=== PATIENT | male | born 1950 | race Caucasian/White ===

== ENCOUNTER → 2024-02-03 09:10 | Outpatient (REF) | payer MEDICARE, SELFPAY ==
[2024-02-03 10:30] LABS: Hematocrit 45.1 % (39.0-52.0); Hemoglobin 15.1 g/dL (13.0-18.0); Mean Corp Hgb Conc. 33.5 g/dL (33.0-37.0); Mean Corpuscular Hgb 29.5 pg (27.0-31.0); Mean Corpuscular Volume 88.3 fL (80.0-94.0); Mean Platelet Volume 9.6 fL (7.4-10.4); Platelet Count 250 10^3/uL (130-400); Red Blood Cell Count 5.11 10^6/uL (4.70-6.10); Red Cell Dist. Width 13.7 % (11.5-14.5); White Blood Cell Count 12.1 10^3/uL (4.8-10.8)
[2024-02-03 10:43] LABS: Glycohemoglobin (HgbA1c) 7.2 % (4.0-5.6)
[2024-02-03 10:46] LABS: % Basophils 0.4 % (0-2); % Immature Granulocytes 0.2 % (0-0.5); % Lymphocytes 51.4 % (20.5-51.1); % Monocytes 5.1 % (1.7-9.3); % Neutrophils 40.9 % (42.2-75.2); Absolute Basophils 0.1 10^3/uL (0-0.2); Absolute Eosinophils 0.2 10^3/uL (0-0.7); Absolute Lymphocytes 6.2 10^3/uL (1.2-3.4); Absolute Monocytes 0.6 10^3/uL (0.1-0.6); Absolute Neutrophils 4.9 10^3/uL (1.4-6.5); Nucleated Red Blood Cells % 0 % (-)
[2024-02-03 11:08] LABS: Microalbumin, Random Urine 1.6 mg/dl (0.6-1.7); Microalbumin/creatinine Ratio 5.5 mg/g
[2024-02-03 11:17] LABS: ALT (SGPT) 29 U/L (0-50); AST (SGOT) 24 U/L (17-59); Albumin 4.7 g/dl (3.5-5.0); Alkaline Phosphatase 58 U/L (38-126); Blood Urea Nitrogen 31 mg/dl (9-20); Carbon Dioxide 27 mmol/L (22-30); Chloride 101 mmol/L (98-107); Glucose 131 mg/dl (70-99); HDL Cholesterol 45 mg/dl; LDL Cholesterol, Calculated 40 mg/dl; Potassium 4.5 mmol/L (3.5-5.1); Sodium 144 mmol/L (135-145); Total Bilirubin 0.7 mg/dl (0.2-1.3); Total Cholesterol 134 mg/dl (50-199); Total Protein 7.4 g/dl (6.3-8.2); Triglyceride 248 mg/dl (10-149); Very Low Density Lipoprotein 49 mg/dl (0-30); eGFR 37.25
[2024-02-03 11:47] LABS: Urine Protein < 5 mg/dl
== END ==
LOC: REG 09:10
PROVIDERS: ATTENDING PHYSICIAN Physician Assistant; FAMILY PHYSICIAN Family Medicine
DX: E11.65 Type 2 diabetes mellitus with hyperglycemia (principal)
CPT/HCPCS: 36415; 80053; 80061; 82043; 82570; 83036; 84156; 85025

== ENCOUNTER → 2024-02-25 19:05 | Outpatient (REF) | payer MEDICARE, SELFPAY ==
[2024-02-26 08:39] LABS: Body Fluid Mononuclear 4.2 %; Body Fluid Polymorphonuclear 95.8 %; Body Fluid WBC 81400 /CUMM
[2024-02-26 08:48] LABS: Body Fluid Second Tech AMA
== END ==
LOC: CLAB 19:05
PROVIDERS: ATTENDING PHYSICIAN Orthopaedic Surgery
DX: M25.462 Effusion, left knee (principal); M17.12 Unilateral primary osteoarthritis, left knee
CPT/HCPCS: 87070; 87075; 87205; 89051; 89060

== ENCOUNTER → 2024-03-01 12:09 | Outpatient (REF) | payer MEDICARE, SELFPAY ==
[2024-03-01 13:24] LABS: Hematocrit 47.3 % (39.0-52.0); Hemoglobin 15.8 g/dL (13.0-18.0); Mean Corp Hgb Conc. 33.4 g/dL (33.0-37.0); Mean Corpuscular Hgb 28.9 pg (27.0-31.0); Mean Corpuscular Volume 86.6 fL (80.0-94.0); Mean Platelet Volume 8.7 fL (7.4-10.4); Platelet Count 451 10^3/uL (130-400); Red Blood Cell Count 5.46 10^6/uL (4.70-6.10); Red Cell Dist. Width 13.2 % (11.5-14.5); White Blood Cell Count 18.8 10^3/uL (4.8-10.8)
[2024-03-01 13:55] LABS: % Basophils 0.3 % (0-2); % Eosinophils 0.3 % (0-6); % Immature Granulocytes 0.3 % (0-0.5); % Lymphocytes 48.7 % (20.5-51.1); % Monocytes 3.2 % (1.7-9.3); % Neutrophils 47.2 % (42.2-75.2); Absolute Basophils 0.1 10^3/uL (0-0.2); Absolute Eosinophils 0.1 10^3/uL (0-0.7); Absolute Immature Granulocytes 0.1 10^3/uL (0-0.05); Absolute Lymphocytes 9.2 10^3/uL (1.2-3.4); Absolute Monocytes 0.6 10^3/uL (0.1-0.6); Absolute Neutrophils 8.9 10^3/uL (1.4-6.5); Nucleated Red Blood Cells % 0 % (-)
[2024-03-01 14:00] LABS: Erythrocyte Sed Rate 47 mm/hour (0-20)
== END ==
LOC: REG 12:09
PROVIDERS: ATTENDING PHYSICIAN Physician Assistant; FAMILY PHYSICIAN Family Medicine
DX: M25.462 Effusion, left knee (principal)
CPT/HCPCS: 36415; 85025; 85652; 86140; 87040

== ENCOUNTER 2024-03-11 19:09 | Inpatient (IN) | payer MEDICARE, SELFPAY ==
[2024-03-11] VITALS (8 sets, daily range): BP systolic 98–142; BP diastolic 64–93; PULSE 100–105; BMI 32.4; BMI 31.9
--- NOTE | 2024-03-11 16:56 | EDRN ---
2 bags of ice applied to L knee.
[2024-03-11 17:06] LABS: Hematocrit 40.2 % (39.0-52.0); Hemoglobin 13.4 g/dL (13.0-18.0); Mean Corp Hgb Conc. 33.3 g/dL (33.0-37.0); Mean Corpuscular Hgb 28.9 pg (27.0-31.0); Mean Corpuscular Volume 86.8 fL (80.0-94.0); Mean Platelet Volume 9.5 fL (7.4-10.4); Platelet Count 266 10^3/uL (130-400); Red Blood Cell Count 4.63 10^6/uL (4.70-6.10); Red Cell Dist. Width 13.7 % (11.5-14.5); White Blood Cell Count 16.8 10^3/uL (4.8-10.8)
--- NOTE | 2024-03-11 17:09 | ED.GENMED ---
History of Present Illness
General
Chief Complaint: Fainting/Passed Out
Source: patient, family and ambulance crew
Exam Limitations: none
Time Seen by Provider: 03/11/24 17:00
Nursing documentation reviewed up to this point in time: agreed with
History of Present Illness
History of Present Illness:
73-year-old male presents for department due to a syncope episode. He is bedbound due to left knee pain and needs a left knee replacement. He got out of bed to use the commode, and felt lightheaded. He had a bowel movement, and upon returning to
bed he fainted onto the bed. EMS noted systolic blood pressure 88, improving to 135 when he was lying flat. Patient was given 250 mL IV fluid. He has been on steroids and has started injection and his knee drained.
Past History
Past History
ED Past Medical History: NIDDM
ED Past Surgical History: Orthopedic (Right foot surgery, left knee surgery x 3) and Other (Nasal surgery)
Social History
Tobacco: Former smoker
Alcohol: None
Drug: None
Review of Systems
Review of Systems
Allergies reviewed?: Yes
All Other Systems: Not applicable
Constitutional: Reports no symptoms
EENT: Reports no symptoms
Respiratory: Reports no symptoms
Cardiac: Reports syncope
ABD/GI: Reports no symptoms
: Reports no symptoms
Musculoskeletal: Reports joint pain and joint swelling
Skin: Reports no symptoms
Neurological: Reports no symptoms
Endocrine: Reports no symptoms
Hematologic/Lymphatic: Reports no symptoms
Psychiatric: Reports no symptoms
Phy Exam
Physical Exam
Physical Exam:
Physical Exam
General: BP 98/63 l
Neck: supple. no meningeal signs. normal posterior pharynx
Heart: s1/s2 tachycardia, no murmur. equal radial
pulses.
HEENT: Pupils equal round reactive to light, EOMI
Lungs: no acute respiratory distress. clear bilaterally
Abdomen: normal bowel sounds. not tender. no CVAT
Neuro: alert and oriented. no focal neurological deficits cranial nerves II through XII intact
Skin: no rash
Psychiatric: well kept. interactive and cooperative
Extremities: Left knee swollen, tender to palpation. no calf tenderness. negative homans. good distal pulses
Course
Orders/Labs/Results
Orders:
Orders
03/11/24 16:44
Electrocardiogram (*1) Urgent
Reason for Study: Chest Pain
Cardiac Monitoring- Treatment ONCE
EKG- Treatment ONCE
03/11/24 16:50
Complete Blood Count/With Diff Urgent
Comprehensive Metabolic Panel Urgent
Abnormal Lab Results
03/11/24
16:50
WBC 16.8 H 10^3/uL
(4.8-10.8)
RBC 4.63 L 10^6/uL
(4.70-6.10)
Chloride 97 L mmol/L
(98-107)
BUN 67 H mg/dl
(9-20)
Creatinine 3.6 H mg/dL
(0.7-1.3)
Glucose 161 H mg/dl
(70-99)
03/11/24 16:50
03/11/24 16:50
Vital Signs
Initial and Last Documented VS:
Initial Vital Signs
BP
142/93
03/11/24 16:32
Last Documented Vital Signs
Temp Pulse Resp BP Pulse Ox
98.1 F 106 23 110/66 97
03/11/24 16:34 03/11/24 17:00 03/11/24 17:00 03/11/24 16:37 03/11/24 17:00
MDM/Problems Addressed
Differential Diagnosis Includes:
Hypovolemia, dysrhythmia
MDM/Problems Addressed:
73-year-old male with syncope episode, acute renal failure, likely hypovolemia. Will give IV lactated Ringer's. Admit to hospitalist.
Chronic conditions affecting care: DM
*Pulse Oximetry
Patient hypoxic: no
*EKG
Interpreted by ED Provider?: Yes
EKG Intrepretation Date: 03/11/24
EKG Intrepretation Time: 16:53
Interpretation: abnormal
Comparison EKG: changes noted
Heart Rate: 109
Rate: tachycardiac
Rhythm: sinus tachycardia
[place]: normal axis
Interval: normal interval
QRS Pattern: normal QRS
Ischemia: non-specific ST changes
*Back Up Machine Operator Interpretation
Rate: tachycardiac
Interpretation: abnormal
Heart Rate: 105
Rhythm: sinus tachycardia
*Critical Care Note
Total Time (30-74mins, 75-104mins- exclusive of procedures): Not Applicable
Data Reviewed
Review of Other/Old Records Reveals: Labs (Prior creatinine 1.9 on 02/03/2024)
Source: records
Patient Management
Social determinants of health affecting care: Living situation and Strong social support
Discussion with other providers: Hospitalist
Escalation/DeEscalation of care consider admission/obs:
Admit indicated
ED Attending Note
-
Portions of this chart may have been created with voice recognition software.� Occasional wrong word or��sound alike� substitutions may have occurred due to the inherent limitations of voice recognition software.
Discharge Plan
Departure
Patient Disposition: Admit
Date of Disposition: 03/11/24
Time of Disposition: 17:30
Admit to: Telemetry
Presentation/result/management discussed w/ accepting MD/DO: Hospitalist
Patient with high blood pressure during this ER visit?: No
Condition: Fair
Discharge Problem:
Syncope, Acute renal failure, Acute pain of left knee
Prescriptions:
No Action
atorvastatin 40 mg Tablet
40 mg PO DAILY
chlorthalidone 25 mg Tablet
25 mg PO Q48H
metformin 1,000 mg Tablet
1,000 mg PO BID
lisinopril 10 mg Tablet
5 mg PO DAILY
finasteride 5 mg Tablet
5 mg PO HS
Referrals:
Adolfo Alberto MD [Family Provider] -
Interventions
Interventions:
*Risk Screen - Suicide Last Done: 03/11/24 16:34
*General Assessment Last Done: 03/11/24 16:34
*Neglect/Abuse Screening Last Done: 03/11/24 16:34
ED- Fall Risk Assessment Last Done: 03/11/24 16:58
*ED COVID-19 Vaccine History Last Done: 03/11/24 16:34
ED- Cardiac Assessment Last Done: 03/11/24 16:58
ED- Neurological Assessment Last Done: 03/11/24 16:58
Discharge Date and Time
Print Language: BENINESE
[2024-03-11 17:19] LABS: ALT (SGPT) 22 U/L (0-50); AST (SGOT) 18 U/L (17-59); Alkaline Phosphatase 74 U/L (38-126); Blood Urea Nitrogen 67 mg/dl (9-20); Calcium 9.7 mg/dl (8.4-10.2); Carbon Dioxide 22 mmol/L (22-30); Chloride 97 mmol/L (98-107); Estimated Creatinine Clearance 25 ml/min; Glucose 161 mg/dl (70-99); Potassium 4.5 mmol/L (3.5-5.1); Sodium 136 mmol/L (135-145); Total Bilirubin 0.6 mg/dl (0.2-1.3); Total Protein 6.9 g/dl (6.3-8.2)
--- NOTE | 2024-03-11 17:37 | EDRN ---
Dr. Villalpando in to see pt and informed pt of admission.
[2024-03-11] MEDS: ZOFRAN 4 MG IV (17:44)
[2024-03-11] MEDS: LR 1000 IV (17:47)
--- NOTE | 2024-03-11 17:51 | EDRN ---
Per Dr. Villalpando pt received last 250 mL of NSS IVF that finished at this time for a total of 500 mL of IV NSS.
--- NOTE | 2024-03-11 17:52 | EDRN ---
Pt requesting pain meds and informed due to BP ED MD felt no narcotics w/ pt informed and requested tylenol w/ last dose at 6:00 am w/ Dr. Kwasi Brady.
--- NOTE | 2024-03-11 18:00 | HPS.HSE ---
Family Physician
-
Family Physician: Adolfo Alberto
Chief Complaint
-
lightheaded
syncope
History of Present Illness
73-year-old male with PMH for HLD, HTn, BPH,type 2 Dm presents for department due to a syncope episode. patient felt lightheaded while he was in the commode. He got into his bed and passed out for 2 minutes. he is bedbound due to left knee pain
and needs a left knee replacement. Patient stated poor oral intake. Stated nausea and dry heaves. Denied diarrhea or vomiting patient denied any abdominal pain. Patient denied any headache. Patient denied chest pain or short of breath. Denied
dysuria hematuria.
Patient noticed worsening swelling of his left since January. Patient was on steroids until 20 days ago. Received corticosteroid injection 2 weeks ago. His knee was tapped 4 times. His fluid culture grew Streptococcus species. Patient did not
require any antibiotics.
Patient received a dose of Tylenol in the ER. Patient initiated on lactated Ringer's. Zofran as needed for nausea
Medical History
Past Medical History
Past Medical History: Reports Other
Additional Past Medical History:
Hyperlipidemia
BPH
Type 2 diabetes
Stage III chronic disease
Past Surgical History: Reports Other
Additional Past Surgical History:
Cyst removed from back
Right ankle surgery
Left knee meniscus repair
ACL removal of left knee
Eye surgery
Social History
Tobacco: Former Smoker
Alcohol: None
Drug: None
Living: With Family
Family History
Family History: Not pertinent
Allergies / Home Medications
Allergies reflects when Allergies were last updated in [facility].
Home Medications with original date entered in [facility]
Allergy/Medication List:
Allergies
Allergy/AdvReac Type Severity Reaction Status Date / Time
No Known Allergies Allergy Unverified 03/11/24 16:34
Home Medications
acetaminophen 325 mg tablet (Tylenol) 650 mg PO Q4HPRN PRN mild pain 03/11/24
atorvastatin 40 mg tablet 40 mg PO DAILY 03/11/24
chlorthalidone 25 mg tablet 25 mg PO Q48H 03/11/24
finasteride 5 mg tablet 5 mg PO HS 03/11/24
lisinopril 10 mg tablet 5 mg PO DAILY 03/11/24
metformin 1,000 mg tablet 1,000 mg PO BID 03/11/24
Review of Systems
-
Constitutional: Reports No Symptoms
EENT: Reports No Symptoms
Respiratory: Reports No Symptoms
Cardiac: Reports No Symptoms
Abdomen/GI: Reports No Symptoms
: Reports No Symptoms
Musculoskeletal: Reports Edema (Left knee)
Skin: Reports No Symptoms
Neurological: Reports No Symptoms, Dizzy and Other (Syncope)
Endocrine: Reports No Symptoms
Hematologic/Lymphatic: Reports No Symptoms
Psych: Reports No Symptoms
Physical Exam
Vital Signs
Vital Signs
Temp Pulse Resp BP Pulse Ox
98.1 F 106 23 110/66 97
03/11/24 16:34 03/11/24 17:00 03/11/24 17:00 03/11/24 16:37 03/11/24 17:00
Physical Exam
General: Well Developed, Well Nourished and No Apparent Distress
HEENT: NormoCephalic, Moist mucous membranes and Atraumatic
Respiratory: Clear
Cardiac: S1/S2 and Regular Rhythm; No Murmur or Rub
GI: Soft, Non Tender, Non Distended and Normal Bowel Sounds; No Organomegaly
Rectal: Deferred by Provider
Musculoskeletal: No Clubbing, No Cyanosis and Other (left knee edema)
Skin: No Rash
Neuro: AO x 3 and Nonfocal/grossly intact
Psych: Calm
Laboratory Results
-
03/11/24 16:50
03/11/24 16:50
Laboratory Results
Total Bilirubin 0.6 mg/dl (0.2-1.3) 03/11/24 16:50
AST 18 U/L (17-59) 03/11/24 16:50
ALT 22 U/L (0-50) 03/11/24 16:50
Alkaline Phosphatase 74 U/L (38-126) 03/11/24 16:50
Data Reviewed
-
Lab Data: Labs Reviewed by me
Impression/Plan
-
# Syncope likely dehydration
-obtain orthostatics
-PT/OT consulted
# Acute renal failure on CKD stage IIIb likely dehydration
-Creatinine 3.6
-hold lisinopril, chlorthalidone, metformin
-normal saline continued
-BMp in am
# Leukocytosis likely from steroids
-WBC 16.8
-Patient is afebrile
-Obtain UA
# Hyperlipidemia
-Statin continued
# BPH
-Finasteride continued
# Type 2 diabetes
-Sliding scale
-Carb controlled diet
left knee pain
-lidocaine, Tylenol continued
# DVT prophylaxis
-Heparin subcu
# CODE STATUS
-Full code
[2024-03-11] MEDS: TYLENOL 650 MG PO ×2 (18:18→21:11)
--- NOTE | 2024-03-11 18:20 | EDRN ---
Dr. Stoddard in room w/pt at this time.
--- NOTE | 2024-03-11 18:35 | W.PN.UPDATE ---
Update Note
Progress Note Update
This is an addendum to the H&P written by Dena Bone on 03/11/2024. 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
73-year-old male past medical history of hypertension, hyperlipidemia, BPH, type 2 diabetes, severe left knee arthritis presenting with dizziness over the past few days associate with syncopal episode after using the bathroom today.
He has not been able to walk properly due to severe left knee pain for which she received Synvisc injection few weeks ago and steroid injection. He has also been on oral steroids recently.
Syncopal episode likely due to hypovolemia. Labs shows TAMARA on CKD with creatinine of 3.6 from 1.9. IV fluids. Hold chlorthalidone, lisinopril, metformin.
Tylenol, lidocaine patch, ice for left knee pain. Patient refusing tramadol and opiates due to insomnia.
Leukocytosis likely from recent steroids.
He is complaining of some stomach discomfort possibly gastritis from recent naproxen use. Protonix.
[2024-03-11 18:45] LABS: % Basophils 0.3 % (0-2); % Eosinophils 0.8 % (0-6); % Immature Granulocytes 0.4 % (0-0.5); % Lymphocytes 42.9 % (20.5-51.1); % Monocytes 4.9 % (1.7-9.3); % Neutrophils 50.7 % (42.2-75.2); Absolute Basophils 0.1 10^3/uL (0-0.2); Absolute Eosinophils 0.1 10^3/uL (0-0.7); Absolute Immature Granulocytes 0.1 10^3/uL (0-0.05); Absolute Lymphocytes 7.2 10^3/uL (1.2-3.4); Absolute Monocytes 0.8 10^3/uL (0.1-0.6); Absolute Neutrophils 8.5 10^3/uL (1.4-6.5); Nucleated Red Blood Cells % 0 % (-)
[2024-03-11] MEDS: LIDOCAINE 4% PATCH TOPICAL (21:07)
[2024-03-11] MEDS: NSS 1000 IV (21:09)
[2024-03-11] MEDS: PROTONIX 40 MG PO (21:10)
[2024-03-11] MEDS: PROSCAR 5 MG PO (21:11)
[2024-03-11] MEDS: HEPARIN 5000 UNITS SC (21:11)
[2024-03-11 21:17] LABS: Glucose - Point of Care 160 mg/dl (70-99)
--- NOTE | 2024-03-11 23:57 | PTCARENOTE ---
Pt is aaox3, reports pain in left leg. pt unable to walk. pt reports that he tried tramadol in past but had horrible side effect. pt provided w/ sandwhich to eat. ivf running. pt oriented to room w/ call jay in reach.
[2024-03-12] VITALS (8 sets, daily range): BP systolic 99–133; BP diastolic 70–84; PULSE 91–120
[2024-03-12] MEDS: TYLENOL 650 MG PO ×4 (01:36→20:00)
[2024-03-12] MEDS: ZOFRAN 4 MG IV (05:21)
[2024-03-12 06:03] LABS: Urine Albumin Trace (Neg - Trace); Urine Bilirubin Negative (Negative); Urine Character Clear (Clear); Urine Color Yellow; Urine Glucose Negative (Negative); Urine Ketone Negative (Negative); Urine Leukocyte Negative (Negative); Urine Nitrite Negative (Negative); Urine Occult Blood Negative (Negative); Urine Specific Gravity 1.015 (<1.030); Urine Urobilinogen Negative (Neg - 1+)
[2024-03-12] MEDS: NSS 1000 IV ×2 (06:37→18:54)
[2024-03-12 07:32] LABS: Glucose - Point of Care 105 mg/dl (70-99)
[2024-03-12] MEDS: NOVOLOG FLEXPEN-LOW RESISTANCE SC ×2 (07:34→16:41)
[2024-03-12] MEDS: LIDOCAINE 4% PATCH 1 PATCH TOPICAL (08:13)
[2024-03-12] MEDS: PROTONIX 40 MG PO (08:13)
[2024-03-12] MEDS: LIPITOR 40 MG PO (08:14)
[2024-03-12] MEDS: HEPARIN 5000 UNITS SC ×2 (08:14→20:00)
[2024-03-12 08:18] LABS: Hematocrit 39.2 % (39.0-52.0); Hemoglobin 12.8 g/dL (13.0-18.0); Mean Corp Hgb Conc. 32.7 g/dL (33.0-37.0); Mean Corpuscular Hgb 29.1 pg (27.0-31.0); Mean Corpuscular Volume 89.1 fL (80.0-94.0); Platelet Count 236 10^3/uL (130-400); Red Cell Dist. Width 13.6 % (11.5-14.5); White Blood Cell Count 11.5 10^3/uL (4.8-10.8)
[2024-03-12 08:41] LABS: Blood Urea Nitrogen 55 mg/dl (9-20); Calcium 9.3 mg/dl (8.4-10.2); Carbon Dioxide 27 mmol/L (22-30); Chloride 100 mmol/L (98-107); Estimated Creatinine Clearance 34 ml/min; Glucose 111 mg/dl (70-99); Potassium 4.5 mmol/L (3.5-5.1); Sodium 137 mmol/L (135-145); eGFR 25.57
[2024-03-12 10:07] LABS: Glycohemoglobin (HgbA1c) 7.9 % (4.0-5.6)
--- NOTE | 2024-03-12 10:21 | W.PN.HOSP.TC ---
Today's Communication/Plan
-
Hold blood pressure medication
Continue with aggressive IV fluids
Trend orthostatic
Trend BMP
Assessment / Plan
Assessment / Plan
# Vasovagal syncope likely second dehydration and while on blood pressure medication
-Positive orthostatics and symptomatic
-Continue with aggressive IV fluids.
-No events noted on telemetry.
-PT/OT consulted
# Acute renal failure on CKD stage IIIb likely dehydration
-Creatinine 3.6 on admission. Improved to 2.6.
-hold lisinopril, chlorthalidone, metformin
-normal saline continued
-Continue to trend BMP.
# Leukocytosis likely from steroids
-WBC 16.8
-Patient is afebrile
# Hyperlipidemia
-Statin continued
# BPH
-Finasteride continued
# Type 2 diabetes
-Sliding scale. A1c of 7.9.
-Carb controlled diet. POC AM 105.
Chronic left knee pain
-lidocaine, Tylenol continued
# DVT prophylaxis
-Heparin subcu
# CODE STATUS
-Full code
Anticipated Discharge: 24 - 48 hours
Subjective/Interval History
-
Date of Service: March 12, 2024
felt lightheaded upon standing earlier today
Objective Data
-
Labs:
Laboratory Results
03/12/24
07:19
WBC 11.5 H
Hgb 12.8 L
Hct 39.2
Plt Count 236
Sodium 137
Potassium 4.5
Chloride 100
Carbon Dioxide 27
BUN 55 H
Creatinine 2.6 H
Glucose 111 H
Calcium 9.3
Vital Signs:
Vital Signs
Temp Pulse Resp BP Pulse Ox
97.7 F 89 16 131/84 95
03/12/24 07:20 03/12/24 07:20 03/12/24 07:20 03/12/24 07:20 03/12/24 07:20
I&O
03/11/24 03/12/24 03/13/24
06:59 06:59 06:59
Intake Total 2960 / 2960
Output Total 250 / 250
Balance 2710 / 2710
Physical Exam
-
General: Well Developed and No Apparent Distress
HEENT: Normocephalic, Atraumatic and Moist Mucous Membranes
Respiratory: Clear to Auscultation
Cardiac: Regular Rhythm and S1/S2; Negative Murmur, Rub or Gallop
GI: Soft, Nontender, Nondistended and Normal Bowel Sounds; Negative Organomegaly
Rectal: Deferred by Provider
Musculoskeletal: No Clubbing, No Cyanosis and No Edema
Skin: Negative Rash
Neuro: Awake, Alert, Oriented, AO x 3, No Motor Deficits and Nonfocal/Grossly Intact
Psych: Calm
Data Reviewed
-
Total Time Spent with Patient (in minutes): 51
[2024-03-12 11:34] LABS: Glucose - Point of Care 167 mg/dl (70-99)
--- NOTE | 2024-03-12 11:47 | CM ---
Pt seen bedside. Pt lives w/ 17 y/o son in a [facility]- 4 steps to enter
Prev. independent. Recently started using RW for knee pain. No other DME identified
Denies SNF hx
Per PT/OT, pt can benefit from HH
Current w/ [facility]. Return referral submitted in [facility]. Liaison made aware
Address, point of contact and insurance verified
PCP: Dr. Adolfo Alberto
Pharmacy: [facility]
Plan: Home w/ [facility] resumption of care
[2024-03-12] MEDS: NOVOLOG FLEXPEN-LOW RESISTANCE 1 UNITS SC (12:09)
--- NOTE | 2024-03-12 16:32 | W.PN.UPDATE ---
Update Note
Progress Note Update
Patient known to our practice. Was supposed to have an outpatient visit with us today for his knee. Has a history of left knee osteoarthritis. Had a viscosupplementation injection approximately 4 weeks ago with a subsequent reaction. He has had
aspirations performed. Elevated WBC, with elevated ESR and normal CRP 1-2 weeks ago. Also had a positive culture which was thought to be a contaminant. No fevers. Complains of knee pain with swelling. Knee aspirated today. 25 cc of slightly
cloudy synovial fluid aspirated which is much less than 1-2 weeks ago. Have sent to the lab for cell count, cultures, and gram stain. He has not been on antibiotics as of yet and would keep off of antibiotics for his knee at this time. Will
follow. Full consult dictated.
[2024-03-12 16:33] LABS: Glucose - Point of Care 124 mg/dl (70-99)
[2024-03-12 21:38] LABS: Glucose - Point of Care 108 mg/dl (70-99)
[2024-03-12] MEDS: PROSCAR 5 MG PO (21:43)
[2024-03-13] MEDS: TYLENOL 650 MG PO ×5 (00:41→21:39)
[2024-03-13 03:40] VITALS: BP 136/79
[2024-03-13] MEDS: NSS 1000 IV ×2 (05:01→12:19)
[2024-03-13 07:00] VITALS: BP 141/88; BP 154/99; PULSE 83; PULSE 93
[2024-03-13 07:51] LABS: Glucose - Point of Care 106 mg/dl (70-99)
[2024-03-13] MEDS: NOVOLOG FLEXPEN-LOW RESISTANCE SC ×3 (07:56→16:50)
[2024-03-13 07:59] LABS: Hematocrit 37.2 % (39.0-52.0); Hemoglobin 11.9 g/dL (13.0-18.0); Mean Corpuscular Hgb 28.7 pg (27.0-31.0); Mean Corpuscular Volume 89.9 fL (80.0-94.0); Mean Platelet Volume 10.1 fL (7.4-10.4); Platelet Count 201 10^3/uL (130-400); Red Blood Cell Count 4.14 10^6/uL (4.70-6.10); Red Cell Dist. Width 13.7 % (11.5-14.5); White Blood Cell Count 9.3 10^3/uL (4.8-10.8)
[2024-03-13] MEDS: LIDOCAINE 4% PATCH 1 PATCH TOPICAL (08:11)
[2024-03-13] MEDS: LIPITOR 40 MG PO (08:11)
[2024-03-13] MEDS: HEPARIN 5000 UNITS SC ×2 (08:11→20:27)
[2024-03-13] MEDS: PROTONIX 40 MG PO (08:11)
[2024-03-13 08:18] LABS: Blood Urea Nitrogen 33 mg/dl (9-20); Calcium 9.1 mg/dl (8.4-10.2); Carbon Dioxide 25 mmol/L (22-30); Chloride 103 mmol/L (98-107); Estimated Creatinine Clearance 46 ml/min; Glucose 99 mg/dl (70-99); Potassium 4.3 mmol/L (3.5-5.1); Sodium 137 mmol/L (135-145); eGFR 37.25
[2024-03-13 11:00] VITALS: BP 140/84
[2024-03-13 11:06] LABS: Body Fluid Polymorphonuclear 95.4 %; Body Fluid WBC 54530 /CUMM
[2024-03-13 11:13] LABS: Body Fluid Mononuclear 4.6 %
[2024-03-13 11:16] LABS: Body Fluid Second Tech HB
[2024-03-13 11:50] LABS: Glucose - Point of Care 104 mg/dl (70-99)
--- NOTE | 2024-03-13 13:10 | W.PN.UPDATE ---
Update Note
Progress Note Update
Edward is a 73-year-old male who we have been following outpatient for a left knee effusion following a Synvisc [address] Ramirez aspirated 25 cc of cloudy fluid from the left knee yesterday. I contacted microbiology this morning, they
reported they had the sample, but no verification of the orders that were placed. I completed the orders, but culture and Gram stain are currently pending.
Fluid analysis did demonstrate a fluid WBC of 54,530, polymorphonuclear cell count of 95.4%, and no fluid crystals seen. The cell count has improved from 81,400 and 95.8% PMNs since 02/25/2024.
On exam, he is resting comfortably. He has mild swelling about the knee, but no significant effusion. Mild tenderness to palpation. Difficulty with range of motion, however, this is due to 'jolting' pain likely secondary to his underlying
advanced arthritis. His white blood cell count has normalized and there is low suspicion for septic joint at this time. We will continue to follow the cultures, however, if he has stabilized from a medical standpoint, we can continue to follow on
an outpatient basis if patient is comfortable with being discharged home. Will continue to follow cultures for now
--- NOTE | 2024-03-13 14:00 | W.PN.HOSP.TC ---
Today's Communication/Plan
-
ID eval
PT OT
Assessment / Plan
Assessment / Plan
73-year-old male presented with lightheadedness and syncope. Patient felt lightheaded while on the commode got into the bed and passed out. Mostly bedbound due to left knee pain and poor p.o. intake.
CVS: S1-S2 normal
Chest: CTA B/L
Abdomen: Soft, NT / Bowel sounds present
Extremities: left knee edema , mild warmth
# Syncope-likely secondary to poor p.o. intake, dehydration, hypovolemia and deconditioning.
# Worsening left knee pain and edema
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
Reportedly had arthrocentesis 2 times MEDICAL RECORD ASSISTANT February 04 and 2 weeks prior to arrival. 1 more arthrocentesis done on 03/12/2024 in the hospital
H/O viscosupplementation injection approximately 4 MEDICAL RECORD ASSISTANT with a subsequent reaction per ortho notes
Was seen again by orthopedics and arthrocentesis done
Fluid studies from 03/12/2024 showing 54,530 cell count with 95% polymorphonuclear cells.
Fluid culture from 02/25/2024 with Streptococcus species- he had 81,400 white cells at that time 95% polymorphonuclear cells.
Cell count is indicative of infection , I will get infectious disease opinion
No crystals seen
# TAMARA on CKD stage IIIb
Creatinine 3.6 on admission now down to 1.9
Hold lisinopril, chlorthalidone and metformin
S/P IV fluids- can stop when current bag runs out.
# Leukocytosis-resolved with hydration
# Hypertension-hold lisinopril and chlorthalidone
# Hyperlipidemia-continue statin
# Enlarged prostate-continue finasteride
# Diabetes-diet controlled. Hemoglobin A1c 7.9
# Ex-smoker
# DVT prophylaxis-heparin subcutaneous
# Full code
D/W RN
Will update family later
Anticipated Discharge: 24 - 48 hours
Subjective/Interval History
-
Date of Service: March 13, 2024
Objective Data
-
Labs:
Laboratory Results
03/13/24
06:45
WBC 9.3
Hgb 11.9 L
Hct 37.2 L
Plt Count 201
Sodium 137
Potassium 4.3
Chloride 103
Carbon Dioxide 25
BUN 33 H
Creatinine 1.9 H
Glucose 99
Calcium 9.1
Vital Signs:
Vital Signs
Temp Pulse Resp BP Pulse Ox
98.5 F 87 20 140/84 95
03/13/24 11:00 03/13/24 11:00 03/13/24 11:00 03/13/24 11:00 03/13/24 11:00
I&O
03/12/24 03/13/24 03/14/24
06:59 06:59 06:59
Intake Total 2960 / 2960 2780 / 2780
Output Total 250 / 250 1775 / 1775
Balance 2710 / 2710 1005 / 1005
--- NOTE | 2024-03-13 14:59 | CON.ID ---
Consultation
-
Date/Time Consultation Requested: March 13, 2024 0930
Date/Time Consultation Performed: March 13, 2024 1500
Requesting Provider: Dr. Elvis Dumont
Performing Provider: Dr. Haley Michael
Reason for Consultation: Knee pain
Chief Complaint / Past History
Chief Complaint
Lightheadedness. Left knee pain.
History of Present Illness
73-year-old male with history of diabetes mellitus, CKD 3, BPH, left knee osteoarthritis who underwent Synvisc injections to the left knee on February 05, 2024. However within 24 hours the left knee became very edematous and painful. He was told he
had a reaction to the Synvisc. Of note he tolerated Synvisc injections in the past. Knee was aspirated to remove fluid, followed by Kenalog and lidocaine injection into the knee the next day. On February 08, Ortho prescribe methylprednisolone
therapy pack as knee effusion returned with discomfort. February 16, again the left knee was aspirated. February 24 knee aspiration was sent for cell count and culture; 81,400 white blood cells, 96% polys, negative crystals. The culture grew rare
Streptococcus species from anaerobic culture only which was deemed as a contaminant and therefore no antibiotic recommended. In addition his CRP was normal. Patient continued to have difficulty with ambulation due to the left knee. He was taking
NSAIDs which then he developed nausea, dry heaves and poor appetite. He then developed presyncopal episodes while on the commode and therefore came to the ER on March 11. He was dehydrated. His white count was 16.8. Patient had acute kidney
injury. He was seen by orthopedic who repeated aspiration of the left knee, culture is still pending. Patient denies any fevers or chills. He has had history of left knee effusions in the past from osteoarthritis requiring repeated arthrocentesis.
Past History
Additional Past Medical History:
Diabetes mellitus
Hypertension
CKD 3
Dyslipidemia
BPH
Left knee osteoarthritis
History of left knee arthroscopic surgery
Right ankle surgery
Allergy History:
No Known Allergies Allergy (Unverified 03/11/24 16:34)
Medications Reviewed: Yes
Current Antibiotics:
none
Social History
Tobacco: Former Smoker
Alcohol: None
Drug: None
Living: With Family
Family History
Family History: Not Pertinent
Review of Systems
Review of Systems
General: Negative Fever or Chills
HEENT: Negative Sinus Problems, Headache or Pharyngitis
Cardiovascular: Negative Chest Pain or Dyspnea
Respiratory: Negative Dyspnea or Cough
Gasteroenterology: Negative Diarrhea
Genital / Urological: Negative Dysuria or Flank Pain
Musculoskeletal: Joint Swelling (left knee) and Arthralgias (left knee)
Skin / Hair / Nails: Negative Rash
Vital Signs
Temp Pulse Resp BP Pulse Ox
98.5 F 87 20 140/84 95
03/13/24 11:00 03/13/24 11:00 03/13/24 11:00 03/13/24 11:00 03/13/24 11:00
Physical Exam
Physical Exam
Constitutional: No Acute Distress and Obese
Eyes: No Conjunctival Hemorrhage and Sclera Anicteric
Cardiovascular: Regular Rate and S1/S2
Pulmonary: Clear
Gastrointestinal: Soft, Non Tender, Non Distended and Normal Bowel Sounds
Genito-Urinary: Negative CVA Tenderness
Extremities: Edema (LLE)
Musculoskeletal: Other (Left knee mod to large effusion, mildly warm, no erythema. ROM limited due to effusion and pain)
Neurological: AO x 3
Lab / Diagnostic Study Results
03/13/24 06:45
03/13/24 06:45
Abs Immat Gran (auto) 0.1 10^3/uL (0-0.05) H 03/11/24 16:50
Absolute Neuts (auto) 8.5 10^3/uL (1.4-6.5) H 03/11/24 16:50
Absolute Lymphs (auto) 7.2 10^3/uL (1.2-3.4) H 03/11/24 16:50
Absolute Monos (auto) 0.8 10^3/uL (0.1-0.6) H 03/11/24 16:50
Absolute Basos (auto) 0.1 10^3/uL (0-0.2) 03/11/24 16:50
Immature Gran % 0.4 % (0-0.5) 03/11/24 16:50
Neutrophils % 50.7 % (42.2-75.2) 03/11/24 16:50
Lymphocytes % 42.9 % (20.5-51.1) 03/11/24 16:50
Monocytes % 4.9 % (1.7-9.3) 03/11/24 16:50
Eosinophils % 0.8 % (0-6) 03/11/24 16:50
Basophils % 0.3 % (0-2) 03/11/24 16:50
Microbiology Results
Micro:
03/12/24 14:29 Body Fluid Culture - Pending
Knee - Left Gram Stain - Pending
Assessment / Plan
# Persistent large left knee effusion after viscosupplementation injection (02/04)
- s/p large volume arthrocentesis x 4
- 02/24 synovial fluid 81,400 WBC, 96% PMN, neg crystal. Cx rare Strep species from anaerobic cx.
- 03/12 synovial fluid 54,539 WBC, 95%PMN, neg crystal. Cx pending.
- Await second synovial cx result.
-Continue to observe off abx at this time.
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
Diabetes mellitus
Hypertension
CKD 3
Dyslipidemia
BPH
Left knee osteoarthritis
History of left knee arthroscopic surgery
Right ankle surgery
[2024-03-13 15:00] VITALS: BP 124/83
[2024-03-13 16:49] LABS: Glucose - Point of Care 112 mg/dl (70-99)
[2024-03-13 19:47] VITALS: BP 131/88
[2024-03-13 21:16] LABS: Glucose - Point of Care 155 mg/dl (70-99)
[2024-03-13] MEDS: PROSCAR 5 MG PO (21:38)
[2024-03-13 23:22] VITALS: BP 138/86; BP 145/92; PULSE 91; PULSE 93
[2024-03-14] VITALS (15 sets, daily range): BP systolic 135–165; BP diastolic 76–103; PULSE 87–100
[2024-03-14] MEDS: TYLENOL 650 MG PO ×3 (03:25→23:01)
[2024-03-14 06:24] LABS: Hematocrit 38.2 % (39.0-52.0); Hemoglobin 12.3 g/dL (13.0-18.0); Mean Corp Hgb Conc. 32.2 g/dL (33.0-37.0); Mean Corpuscular Hgb 28.7 pg (27.0-31.0); Mean Platelet Volume 9.6 fL (7.4-10.4); Platelet Count 208 10^3/uL (130-400); Red Blood Cell Count 4.29 10^6/uL (4.70-6.10); Red Cell Dist. Width 13.7 % (11.5-14.5); White Blood Cell Count 8.7 10^3/uL (4.8-10.8)
[2024-03-14 07:00] LABS: Blood Urea Nitrogen 22 mg/dl (9-20); Calcium 9.3 mg/dl (8.4-10.2); Carbon Dioxide 28 mmol/L (22-30); Chloride 100 mmol/L (98-107); Estimated Creatinine Clearance 52 ml/min; Glucose 104 mg/dl (70-99); Potassium 4.2 mmol/L (3.5-5.1); Sodium 138 mmol/L (135-145); eGFR 42.57
[2024-03-14 07:22] LABS: Glucose - Point of Care 105 mg/dl (70-99)
[2024-03-14] MEDS: NOVOLOG FLEXPEN-LOW RESISTANCE SC ×3 (07:29→18:25)
[2024-03-14] MEDS: LIPITOR 40 MG PO (07:44)
[2024-03-14] MEDS: PROTONIX 40 MG PO (07:44)
[2024-03-14] MEDS: LIDOCAINE 4% PATCH 1 PATCH TOPICAL (07:45)
[2024-03-14] MEDS: HEPARIN 5000 UNITS SC ×2 (07:47→22:04)
--- NOTE | 2024-03-14 10:07 | PTCARENOTE ---
Assumed care of pt from previous nurse. Pt with pain to left knee, managed with tylenol, pt declines stronger medications, ice applied on and off. Pt call jay is within reach, pt rings ion. will cont to monitor. Pt awaiting knee ultrasound today
fluid culture of left knee positive, results TT to Dr. Ramirez.
[2024-03-14 11:22] LABS: Glucose - Point of Care 127 mg/dl (70-99)
--- NOTE | 2024-03-14 11:33 | W.PN.ID1 ---
Date of Service
Date of Service: March 14, 2024
Today's Communication
Postop, can start ceftriaxone 2g IV q24.
Assessment / Plan
# Septic left Knee
# Persistent large left knee effusion after viscosupplementation injection (02/04)
- s/p large volume arthrocentesis x 4
- 02/24 synovial fluid 81,400 WBC, 96% PMN, neg crystal. Cx rare Strep species from anaerobic cx.
- 03/12 synovial fluid 54,539 WBC, 95%PMN, neg crystal. Gram stain GPC, cx pending
- Per Ortho, will wash out knee today. Pls send cultures.
- Postop, can start ceftriaxone 2g IV q24.
- Will need 6 weeks of IV abx.
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
Diabetes mellitus
Hypertension
CKD 3
Dyslipidemia
BPH
Left knee osteoarthritis
History of left knee arthroscopic surgery
Right ankle surgery
Chief Complaint
-: Other (knee effusion)
Subjective / Review of Systems
Left knee painful and swollen
Vital Signs / Physical Exam
Vital Signs
Vital Signs
Temp Pulse Resp BP Pulse Ox
98.3 F 87 17 163/89 95
03/14/24 07:58 03/14/24 07:58 03/14/24 07:58 03/14/24 07:58 03/14/24 07:58
Physical Exam
Constitutional: No Acute Distress
Cardiovascular: Regular Rate and S1/S2
Gastrointestinal: Soft, Non Tender, Non Distended and Normal Bowel Sounds
Extremities: Edema (LLE 2+)
Musculoskeletal: Other (Left knee large effusion, warm)
Objective Data
Lab Data
Lab Results
03/14/24 06:00
03/14/24 06:00
Estimated Creat Clear 52 ml/min 03/14/24 06:00
Total Bilirubin 0.6 mg/dl (0.2-1.3) 03/11/24 16:50
AST 18 U/L (17-59) 03/11/24 16:50
ALT 22 U/L (0-50) 03/11/24 16:50
Alkaline Phosphatase 74 U/L (38-126) 03/11/24 16:50
C-Reactive Protein 44.70 mg/L (0.0-10.00) H 03/14/24 06:00
Most recent labs reviewed.
Micro Results:
03/12/24 14:29 Body Fluid Culture - Pending
Knee - Left Gram Stain - Preliminary
Care Review
Plan reviewed with: Physician (Drs. Ramirez and Tim)
--- NOTE | 2024-03-14 13:36 | W.PN.HOSP.TC ---
Today's Communication/Plan
-
I and D Joint
Ceftriaxone started
Assessment / Plan
Assessment / Plan
73-year-old male presented with lightheadedness and syncope. Patient felt lightheaded while on the commode got into the bed and passed out. Mostly bedbound due to left knee pain and poor p.o. intake.
CVS: S1-S2 normal
Chest: CTA B/L
Abdomen: Soft, NT / Bowel sounds present
Extremities: left knee edema , mild warmth
# Syncope-likely secondary to poor p.o. intake, dehydration, hypovolemia and deconditioning.
# Worsening left knee pain and edema
Was on steroids until 20 days RISK REDUCTION COUNSELOR and received corticosteroid injection 2 weeks prior to arrival.
Reportedly had arthrocentesis 2 times RISK REDUCTION COUNSELOR February 04 and 2 weeks prior to arrival. 1 more arthrocentesis done on 03/12/2024 in the hospital
H/O viscosupplementation injection approximately 4 RISK REDUCTION COUNSELOR with a subsequent reaction per ortho notes
Was seen again by orthopedics and arthrocentesis done
Fluid studies from 03/12/2024 showing 54,530 cell count with 95% polymorphonuclear cells.
Fluid culture from 02/25/2024 with Streptococcus species- he had 81,400 white cells at that time 95% polymorphonuclear cells.
Cell count is indicative of infection , cultures are also growing gram-positive cocci
No crystals seen
Patient is going for washout of the joint today
Ceftriaxone started
# TAMAAR on CKD stage IIIb
Creatinine 3.6 on admission now down to 1.7
Hold lisinopril, chlorthalidone and metformin
Restart chlorthalidone and lisinopril tomorrow as long as creatinine is stable.
# Leukocytosis-Resolved with hydration
# Hypertension-Hold lisinopril and chlorthalidone. Restart chlorthalidone and lisinopril tomorrow as long as creatinine is stable.
# Hyperlipidemia-continue statin
# Enlarged prostate-continue finasteride
# Diabetes-diet controlled. Hemoglobin A1c 7.9
# Ex-smoker
# DVT prophylaxis-heparin subcutaneous
# Full code
Discussed with infectious disease
Left a message for daughter
Anticipated Discharge: 24 - 48 hours
Subjective/Interval History
-
Date of Service: March 14, 2024
Objective Data
-
Labs:
Laboratory Results
03/14/24
06:00
WBC 8.7
Hgb 12.3 L
Hct 38.2 L
Plt Count 208
Sodium 138
Potassium 4.2
Chloride 100
Carbon Dioxide 28
BUN 22 H
Creatinine 1.7 H
Glucose 104 H
Calcium 9.3
Vital Signs:
Vital Signs
Temp Pulse Resp BP Pulse Ox
98.3 F 87 17 163/89 95
03/14/24 07:58 03/14/24 07:58 03/14/24 07:58 03/14/24 07:58 03/14/24 07:58
I&O
03/13/24 03/14/24 03/15/24
06:59 06:59 06:59
Intake Total 2780 / 2780 1140 / 1140
Output Total 1775 / 1775 2875 / 2875
Balance 1005 / 1005 -1735 / -1735
[2024-03-14 14:01] LABS: Erythrocyte Sed Rate 58 mm/hour (0-20)
--- NOTE | 2024-03-14 14:44 | W.PN.UPDATE ---
Update Note
Progress Note Update
Left knee aspirate from 03/12/2024 with Gram stain revealing gram-positive cocci. Spoke with patient at length in regards to this finding and treatment recommendations going forward. At this time, our recommendation is to proceed with a left knee
open I&D and synovectomy. The procedure was explained in detail along with the associated risks, benefits, and recovery process. Surgical consent was obtained to proceed with the left knee open I&D with Dr. Ramirez after 4 PM as the patient ate
breakfast this morning. He will be weightbearing as tolerated after the procedure. Appreciate the recommendations of Dr. Michael of infectious disease for IV antibiotics going forward. Updated CRP and sed rate were ordered for trending purposes
going forward. All questions were answered and patient was in agreement with treatment recommendations going forward.
[2024-03-14 15:42] LABS: Glucose - Point of Care 121 mg/dl (70-99)
[2024-03-14] MEDS: DILAUDID 0.5 MG IV (17:27)
[2024-03-14 17:28] LABS: Glucose - Point of Care 121 mg/dl (70-99)
[2024-03-14] MEDS: ZOFRAN 4 MG IV (17:42)
--- NOTE | 2024-03-14 17:48 | SUR.PHASEI ---
patient received sedate, oral airway in place, quickly awakens c/o pain left knee, attempt to position for comfort, medicated with dilaudid 0.5mg IV - at time cannot rate pain - yells 'ouch, ouch ouch' with BP cuff inflation. When asked again
about pain rates knee at 10/10 and arm pain with bp check as 10/10. falls asleep snoring in between complaints. then c/o nausea - treated with zofran. at 17:50 nausea passed. Snoring - awakens and says pain 10/10.
[2024-03-14] MEDS: DILAUDID 0.25 MG IV (17:55)
--- NOTE | 2024-03-14 18:26 | PTCARENOTE ---
Rec'd pt from PACU. Call jay placed within reach, dinner ordered.
[2024-03-14 21:21] LABS: Glucose - Point of Care 202 mg/dl (70-99)
[2024-03-14] MEDS: PROSCAR 5 MG PO (22:05)
[2024-03-15] MEDS: ROXICODONE 5 MG PO (00:26)
[2024-03-15 03:20] VITALS: BP 151/96
[2024-03-15] MEDS: ROXICODONE 10 MG PO ×3 (03:45→16:33)
[2024-03-15 07:22] LABS: Glucose - Point of Care 143 mg/dl (70-99)
[2024-03-15 07:30] VITALS: BP 146/87; BP 149/92; PULSE 100; PULSE 102
[2024-03-15 08:32] LABS: Hematocrit 37.9 % (39.0-52.0); Hemoglobin 12.5 g/dL (13.0-18.0); Mean Corpuscular Hgb 29.1 pg (27.0-31.0); Mean Corpuscular Volume 88.3 fL (80.0-94.0); Mean Platelet Volume 9.4 fL (7.4-10.4); Platelet Count 245 10^3/uL (130-400); Red Blood Cell Count 4.29 10^6/uL (4.70-6.10); Red Cell Dist. Width 13.5 % (11.5-14.5); White Blood Cell Count 12.7 10^3/uL (4.8-10.8)
[2024-03-15] MEDS: NOVOLOG FLEXPEN-LOW RESISTANCE SC (08:36)
--- NOTE | 2024-03-15 08:42 | VNURNOTE ---
Chart reviewed. Patient is current with [facility]. Resumption referral accepted in [facility].
[2024-03-15] MEDS: LIPITOR 40 MG PO (08:43)
[2024-03-15] MEDS: LIDOCAINE 4% PATCH 1 PATCH TOPICAL (08:43)
[2024-03-15] MEDS: PROTONIX 40 MG PO (08:44)
[2024-03-15] MEDS: HEPARIN 5000 UNITS SC ×2 (08:47→19:48)
--- NOTE | 2024-03-15 09:11 | W.PN.ORTHO ---
Addendum entered and electronically signed by Spike Ramirez MD 03/15/24 13:23:
Patient seen and examined. Discussed with the patient the need to get out of bed and get moving. Will follow cultures. Appreciate ID and medical team support
Original Note:
Today's Communication / Plan
-
Appreciate the care of all involved, continue treatment
Dispo per patient/CM- PICC likely
Following intra-op Cx data (fluid and tissue)
Latest aspirate with GPCs on Gram- appreciate ID- Rocephin 2g IV q24 at current time (next dose @ 1600)
Heparin for now for DVT ppx
Dressings to remain for now- florinda removal tomorrow
May be WBAT on walker
PT/OT would be beneficial
Will follow
Assessment
.
Distal Motor Intact: Yes
Dressing:
Clean, dry and intact. Dressings and florinda compression in place
Assessment:
POD#1 Left knee open I&D
Afeb, WBC 12.7 this AM
Overall, short of left knee pain, doing/feeling well
Calf soft, nonteder
Plan
.
Surgery / Date: Left knee open I&D 17 Mar 21 (Ashley)
DVT Prophylaxis: Other (Heparin)
Activity:
Out of bed. May be WBAT LLE
PT/OT
Subjective
.
.:
Patient resting comfortably this AM. endorses some mild to moderate pain left knee.
Vital Signs and Labs
.
Vital Signs and Labs:
Lab Results
03/15/24 08:11
Temp Pulse Resp BP Pulse Ox
98.8 F 102 16 149/92 92
03/15/24 07:30 03/15/24 07:30 03/15/24 07:30 03/15/24 07:30 03/15/24 07:30
[2024-03-15 09:13] LABS: Blood Urea Nitrogen 19 mg/dl (9-20); Calcium 9.4 mg/dl (8.4-10.2); Carbon Dioxide 24 mmol/L (22-30); Chloride 97 mmol/L (98-107); Estimated Creatinine Clearance 63 ml/min; Glucose 243 mg/dl (70-99); Potassium 4.5 mmol/L (3.5-5.1); Sodium 135 mmol/L (135-145); eGFR 53.74
--- NOTE | 2024-03-15 09:41 | W.PN.ID1 ---
Addendum entered and electronically signed by Haley Michael MD 03/15/24 15:08:
I saw and evaluated the patient. I reviewed the resident�s note and agree with findings and plan as documented in the resident�s note.
Septic left knee s/p I+D (03/14/24), + serous-bloody fluid
New leukocytosis most likely post-op
-OR cx pending
- 03/12 aspiration fluid gram stain GPC, cx pending
-02/24 outpt aspiration cx Strep species
- Place PICC.
- Start ceftriaxone 2g IV q24H x 6 weeks through 04/26/2024
- Follow weekly CBC, CMP while on ceftriaxone.
-Trend weekly CRP.
-Home Infusion sheet submitted to medical case worker.
Original Note:
Date of Service
Date of Service: March 15, 2024
Today's Communication
PICC line placement for 6 weeks of Abx.
Assessment / Plan
# Septic left Knee s/p Incision and drainage with irrigation and debridement of left knee 03/14.
# Persistent large left knee effusion after viscosupplementation injection (02/04)
- s/p large volume arthrocentesis x 4
- 02/24 synovial fluid 81,400 WBC, 96% PMN, neg crystal. Cx rare Strep species from anaerobic cx.
- 03/12 synovial fluid 54,539 WBC, 95%PMN, neg crystal. Gram stain GPC, cx pending
- Joint fluid culture pending
- ceftriaxone 2g IV q24.
- Will need 6 weeks of IV abx.
- PICC line ordered
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
Diabetes mellitus
Hypertension
CKD 3
Dyslipidemia
BPH
Left knee osteoarthritis
History of left knee arthroscopic surgery
Right ankle surgery
Chief Complaint
-: Other (knee effusion)
Subjective / Review of Systems
patient seen and examined at bedside. no acute complaint
Vital Signs / Physical Exam
Vital Signs
Vital Signs
Temp Pulse Resp BP Pulse Ox
98.8 F 102 16 149/92 92
03/15/24 07:30 03/15/24 07:30 03/15/24 07:30 03/15/24 07:30 03/15/24 07:30
Physical Exam
Constitutional: No Acute Distress
Cardiovascular: Regular Rate and S1/S2
Pulmonary: Clear
Gastrointestinal: Soft, Non Tender, Non Distended and Normal Bowel Sounds
Musculoskeletal: Other (left knee- mild joint tenderness)
Neurological: AO x 3
Objective Data
Lab Data
Lab Results
03/15/24 08:11
03/15/24 08:11
ESR Cancelled 03/14/24 13:17
Estimated Creat Clear 63 ml/min 03/15/24 08:11
Total Bilirubin 0.6 mg/dl (0.2-1.3) 03/11/24 16:50
AST 18 U/L (17-59) 03/11/24 16:50
ALT 22 U/L (0-50) 03/11/24 16:50
Alkaline Phosphatase 74 U/L (38-126) 03/11/24 16:50
C-Reactive Protein 44.60 mg/L (0.0-10.00) H 03/14/24 14:10
Most recent labs reviewed.
Micro Results:
03/12/24 14:29 Body Fluid Culture - Preliminary
Knee - Left Gram Stain - Preliminary
03/14/24 16:39 Wound Culture - Pending
Joint Gram Stain - Pending
03/14/24 16:39 Fungal Culture - Preliminary
Joint Fluid Culture in progress.
Positive cultures are reported as soon as detected.
Final report to follow in four to five weeks.
03/14/24 16:39 Tissue Culture - Pending
Tissue Gram Stain - Pending
03/14/24 16:39 Fungal Culture - Pending
Tissue
03/14/24 16:39 Anaerobic Culture - Pending
Tissue
03/14/24 16:39 Anaerobic Culture - Pending
Joint Fluid
--- NOTE | 2024-03-15 10:53 | PN.CDI ---
CDI
- -
CDI:
Physician Documentation Request
Admit Date: 03/11/24 19:09
Dear Doctor Ashley,
Please review the following and provide your response in the progress notes.
Clinical Indicators:
- 03/14 Op Report 'Incision and drainage with irrigation and debridement of left knee'
- '3 L of normal saline was then used to irrigate followed by tranexamic acid irrigation. Following this, the knee had been debrided.'
Could you provide, in the progress notes further clarification regarding the debridement.
Please specify the type of debridement performed:
1. Excisional Debridement - defined as removal by excision of devitalized tissue, necrosis or slough
2. Non-excisional debridement - defined as removal of devitalized tissue, necrosis or slough by such methods as irrigation, brushing, scrubbing or washing.
If the debridement was excisional, please also include:
1. Type of instrument used (#11 blade, #15 blade etc.)
2. What was excised (necrotic tissue, gangrenous tissue, slough etc.)
For excisional or non-excisional, please also include:
1. Depth of debridement (skin, subcutaneous tissue, fascia, muscle, bone etc)
2. Size and appearance of the wound (L, W, D, color of wound, drainage)
Use of terms such as suspected, likely, concern for, or probable (associated with a specific diagnosis that is being evaluated, monitored, or treated as if it exists) are acceptable and can be coded in the inpatient setting, when documented at the
time of discharge.
Thank you,
Jaguar Palafox RN
CDI Specialist
Please use your independent medical judgment in providing your response.
[2024-03-15 11:14] VITALS: BP 133/87
[2024-03-15 11:58] LABS: Glucose - Point of Care 171 mg/dl (70-99)
--- NOTE | 2024-03-15 12:19 | CM ---
Addendum entered by Presley Omalley 03/15/24 15:10:
Received abx cao from [facility]. Out of pocket cost for pt will be $25.81/weekly for abx
Per Katarzyna/[facility], nursing and supplies will be covered at 100%
Per pt, he would like to move forward with [facility] as supplier. Left Katarzyna a vm to inform of pt's decision
PICC line placed today. Will fax report and CXR to [facility] when available
Per pt, he is interested in [facility] for additional support in the home. CM will provide list of options for pt to explore prior to d/c
[facility]

[facility]

Plan: Home w/ [facility] and [facility] services
Original Note:
Per ID, pt will need IV abx at home thru 04/26
Pt seen bedside w/ spouse. Discussed home IV abx per ID. Pt agreeable to explore [facility] for abx
CM spoke w/ Katarzyna/[facility] re cao check for medication. CM faxed script, demographics and insurance card to [facility], will await cao from Katarzyna
Pt current w/ [facility]
Plan: Home w/ IV abx
[2024-03-15] MEDS: NOVOLOG FLEXPEN-LOW RESISTANCE 1 UNITS SC (12:58)
--- NOTE | 2024-03-15 14:15 | W.PN.HOSP.TC ---
Addendum entered and electronically signed by Elvis Dumont MD 03/17/24 15:10:
Correction I and D was on 03/14 24 , not 03/04/24
Addendum entered and electronically signed by Elvis Dumont MD 03/17/24 15:10:
Correction I and D was on 03/14 24 , not 03/04/24
Original Note:
Today's Communication/Plan
-
Will need long-term antibiotics. Patient aware
Case management to facilitate
Assessment / Plan
Assessment / Plan
73-year-old male presented with lightheadedness and syncope. Patient felt lightheaded while on the commode got into the bed and passed out. Mostly bedbound due to left knee pain and poor p.o. intake.
CVS: S1-S2 normal
Chest: CTA B/L
Abdomen: Soft, NT / Bowel sounds present
Extremities: left knee edema , mild warmth
# Syncope-likely secondary to poor p.o. intake, dehydration, hypovolemia and deconditioning.
# Worsening left knee pain and edema
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
Reportedly had arthrocentesis 2 times CATHODE MAKER February 04 and 2 weeks prior to arrival. 1 more arthrocentesis done on 03/12/2024 in the hospital
H/O viscosupplementation injection approximately 4 CATHODE MAKER with a subsequent reaction per ortho notes
Fluid studies from 03/12/2024 showing 54,530 cell count with 95% polymorphonuclear cells.
Fluid culture from 02/25/2024 with Streptococcus species- he had 81,400 white cells at that time 95% polymorphonuclear cells.
Cell count is indicative of infection , cultures are also growing gram-positive cocci
Fluid obtained and blood culture bottle growing gram-positive cocci on 03/13/2024
No crystals seen
Left knee open I&D 03/04/[address] Ramirez
Ceftriaxone started
# TAMARA on CKD stage IIIb
Creatinine 3.6 on admission now down to 1.4
# Leukocytosis-Resolved with hydration
# Hypertension- Restart chlorthalidone and lisinopril
# Hyperlipidemia-continue statin
# Enlarged prostate-continue finasteride
# Diabetes-diet controlled. Hemoglobin A1c 7.9. Restart Metformin
# Ex-smoker
# DVT prophylaxis-heparin subcutaneous
# Full code
Discussed with infectious disease
D/W Sister at bed side
Discussed with nursing at bedside
Encourage out of bed
Anticipated Discharge: 24 - 48 hours
Subjective/Interval History
-
Date of Service: March 15, 2024
Objective Data
-
Labs:
Laboratory Results
03/15/24
08:11
WBC 12.7 H
Hgb 12.5 L
Hct 37.9 L
Plt Count 245
Sodium 135
Potassium 4.5
Chloride 97 L
Carbon Dioxide 24
BUN 19
Creatinine 1.4 H
Glucose 243 H
Calcium 9.4
Vital Signs:
Vital Signs
Temp Pulse Resp BP Pulse Ox
97.8 F 97 16 133/87 94
03/15/24 11:14 03/15/24 11:14 03/15/24 11:14 03/15/24 11:14 03/15/24 11:14
I&O
03/14/24 03/15/24 03/16/24
06:59 06:59 06:59
Intake Total 1140 / 1140 900 / 900
Output Total 2875 / 2875 1825 / 1825
Balance -1735 / -1735 -925 / -925
[2024-03-15 15:00] VITALS: BP 147/98
[2024-03-15] MEDS: ZESTRIL 5 MG PO (15:07)
[2024-03-15] MEDS: Hygroton 25 MG PO (15:08)
[2024-03-15 16:41] LABS: Glucose - Point of Care 212 mg/dl (70-99)
[2024-03-15] MEDS: ROCEPHIN 2000 MG IV (18:18)
[2024-03-15] MEDS: STERILE WATER FOR INJECTION 20 ML IV (18:18)
[2024-03-15] MEDS: GLUCOPHAGE 1000 MG PO (18:18)
[2024-03-15] MEDS: NOVOLOG FLEXPEN-LOW RESISTANCE 2 UNITS SC (18:19)
[2024-03-15 19:43] VITALS: BP 120/83; BP 122/82; PULSE 101; PULSE 99
[2024-03-15 20:59] LABS: Glucose - Point of Care 138 mg/dl (70-99)
[2024-03-15] MEDS: PROSCAR 5 MG PO (22:09)
[2024-03-15 23:30] VITALS: BP 127/81
[2024-03-16] MEDS: ROXICODONE 10 MG PO ×3 (01:01→19:43)
[2024-03-16 03:17] VITALS: BP 133/91
[2024-03-16 04:39] LABS: Blood Urea Nitrogen 22 mg/dl (9-20); Calcium 9.2 mg/dl (8.4-10.2); Carbon Dioxide 27 mmol/L (22-30); Chloride 98 mmol/L (98-107); Estimated Creatinine Clearance 59 ml/min; Glucose 124 mg/dl (70-99); Potassium 4.4 mmol/L (3.5-5.1); Sodium 137 mmol/L (135-145); eGFR 49.47
[2024-03-16] MEDS: TYLENOL 650 MG PO ×2 (06:46→15:15)
--- NOTE | 2024-03-16 06:52 | PTCARENOTE ---
~03:45 Pt reported 'itching' of the chest. Pt reported 'I think I'm having a reaction to the abx.' This typewriter ribbon winder assessed pt's chest. No rash noted on assessment. Chest blanchable red. Pt reported itching 'just started' 'it started at 11 [pm].'
Notified KENDELL Zendejas. New order placed.
This typewriter ribbon winder went into pt's room to administer medication. Pt asleep. Pt arousable. Pt report 'I'm not itching.' Pt refused medication. Plan of care ongoing.
[2024-03-16 07:00] VITALS: BP 129/81
--- NOTE | 2024-03-16 07:00 | W.PN.ORTHO ---
Addendum entered and electronically signed by Spike Ramirez MD 03/16/24 17:13:
Patient seen and examined. Strep oralis from aspirate on 03/12. OR cultures negative thus far. Feeling better. AVSS. Plan for IV antibiotics until 04/26. Followup in office for staple removal in 2 weeks.
Original Note:
Today's Communication / Plan
-
73-year-old male POD 2 Left knee open I&D 03/14/[address] Ramirez.
- Appreciate the care of all involved, continue treatment.
- Dispo per patient/CM- PICC.
- Following intra-op Cx data (fluid and tissue). Preliminary intra-op wound cultures with rare WBC, no organisms seen. Preliminary tissue culture with few WBC, no organisms seen.
- Latest aspirate (03/12) with GPCs on Gram. 02/24 outpt aspiration cx Strep species. Appreciate ID- Rocephin 2g IV q24H x 6 weeks through 04/26/2024.
- Heparin for now for DVT ppx.
- May be WBAT on walker.
- PT/OT. Encouraged OOB. Ice and Elevation.
- Orthopedic surgery will continue to follow along.
Assessment
.
Distal Motor Intact: Yes
Dressing:
Clean, dry and intact. Aquacel dressing in place to left knee with scant contained bloody drainage. Sean wrap removed.
Able to demonstrate gentle flexion and extension without significant discomfort. Patient reports that this is improved from yesterday.
Calf is soft and nontender to palpation. Able to plantarflex and dorsiflex left ankle. NVI distally.
Assessment:
POD 2 Left Knee Open I&D 03/14/[address] Ramirez.
Plan
.
Surgery / Date: Left knee open I&D Mar 21 (Ashley)
DVT Prophylaxis: Heparin
Activity:
Out of bed. May be WBAT LLE.
PT/OT
Discharge Plan: Other
Discharge Information:
Appreciate CM.
Subjective
.
.:
Patient resting comfortably in bed. Endorses gradual improvement with left knee pain. Denies any new complaints or concerns at this time.
Vital Signs and Labs
.
Vital Signs and Labs:
Lab Results
03/15/24 08:11
03/16/24 03:45
Temp Pulse Resp BP Pulse Ox
97.5 F 92 16 133/91 97
03/16/24 03:17 03/16/24 03:17 03/16/24 03:17 03/16/24 03:17 03/16/24 03:17
[2024-03-16 08:03] LABS: Glucose - Point of Care 122 mg/dl (70-99)
[2024-03-16] MEDS: NOVOLOG FLEXPEN-LOW RESISTANCE SC (08:08)
--- NOTE | 2024-03-16 08:19 | PN.CDI ---
Addendum entered and electronically signed by Elvis Dumont MD 03/16/24 17:20:
Documentation is complete at this time.
Original Note:
CDI
- -
CDI:
Physician Documentation Request
Admit Date: 03/11/24 19:09
Dear Doctor Tim,
Please review the following and provide your response in the progress notes.
Clinical Indicators:
- On admission: WBC 16.8, HR 100s
- CRP 44.70, ESR 58
- 03/14 Ortho update 'Left knee aspirate from 03/12/2024 with Gram stain revealing gram-positive cocci'
- 03/14 Operational report 'Left septic knee'
- IVF 5L given
- IV abx Ceftriaxone
Please clarify which most accurately describes the patient:
- Sepsis due to septic left knee
Systemic manifestations of infection, with 2 or more SIRS criteria which include:
Fever > 100.4 degrees F or hypothermia < 96.8 degrees F
Leukocytosis - WBC > 12,000 or leukopenia, WBC < 4,000 or > 10% bands
Tachycardia - > 90 beats per minute
Tachypnea - RR > 20 breaths per minute or PaCO2 < 32 mmHg
Source: Merck Manual 2012
Indicate the known or suspected organism
Indicate the known or suspected underlying infection, such as UTI, pneumonia or cellulitis
Indicate if a suspected bacterial infection of unknown source
Indicate if associated with an implanted device such as a F/C, PICC line, orthopedic hardware etc.
Indicate if there is associated organ dysfunction, such as renal or respiratory failure
- SIRS due to a non-infectious source left knee with TAMARA
Indicate the known or suspected etiology
Indicate if there is associated organ dysfunction, such as renal or respiratory failure
- Other
Use of terms such as suspected, likely, concern for, or probable (associated with a specific diagnosis that is being evaluated, monitored, or treated as if it exists) are acceptable and can be coded in the inpatient setting, when documented at the
time of discharge.
Thank you,
Jaguar Palafox RN
CDI Specialist
Please use your independent medical judgment in providing your response.
[2024-03-16] MEDS: LIDOCAINE 4% PATCH TOPICAL ×2 (08:37→08:59)
[2024-03-16] MEDS: GLUCOPHAGE 1000 MG PO ×2 (08:38→16:46)
[2024-03-16] MEDS: LIPITOR 40 MG PO (08:38)
[2024-03-16] MEDS: ZESTRIL 5 MG PO (08:38)
[2024-03-16] MEDS: PROTONIX 40 MG PO (08:38)
[2024-03-16] MEDS: ROCEPHIN 2000 MG IV (08:39)
[2024-03-16] MEDS: HEPARIN 5000 UNITS SC ×2 (08:39→19:42)
[2024-03-16] MEDS: STERILE WATER FOR INJECTION 20 ML IV (08:40)
--- NOTE | 2024-03-16 11:14 | CM ---
CM reviewed chart, patient seen bedside. Patient will require IV antibiotics upon discharge. CM spoke with Katarzyna from [facility], will arrive to Hospital around 12:30 for bedside teaching, can deliver supplies tonight if patient stable for
discharge. Patient reports he is willing to work with PT today, patient current with [facility]. Patient reports his is anxious about discharging home, CM provided support, [facility] will be able to answer patient questions. IMM reviewed, signed, placed
in chart, provided with copy. CM will continue to follow for all discharge planning needs.
Plan; home with IV antibiotics ([facility]), [facility]

[facility]
[2024-03-16 11:51] LABS: Glucose - Point of Care 152 mg/dl (70-99)
--- NOTE | 2024-03-16 12:13 | W.PN.ID1 ---
Date of Service
Date of Service: March 16, 2024
Today's Communication
Continue ceftriaxone 2g IV q24 x 6 weeks through 04/26/24.
Assessment / Plan
# Septic left Knee s/p Incision and drainage with irrigation and debridement of left knee 03/14.
# Persistent large left knee effusion after viscosupplementation injection (02/04)
- s/p large volume arthrocentesis x 4, outpt
- 02/24 synovial fluid 81,400 WBC, 96% PMN, neg crystal. Cx rare Strep species from anaerobic cx.
- 03/12 synovial fluid 54,539 WBC, 95%PMN, neg crystal. Gram stain: GPC, cx: GPC
- 03/14 OR cultures neg to date.
- Continue ceftriaxone 2g IV q24 x 6 weeks through 04/26/24.
-PICC in place
-Home infusion sheet submitted to case management on 03/15.
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
Diabetes mellitus
Hypertension
CKD 3
Dyslipidemia
BPH
Left knee osteoarthritis
History of left knee arthroscopic surgery
Right ankle surgery
Chief Complaint
-: Other (knee effusion)
Subjective / Review of Systems
No new complaints
Vital Signs / Physical Exam
Vital Signs
Vital Signs
Temp Pulse Resp BP Pulse Ox
97.8 F 103 18 129/81 97
03/16/24 07:00 03/16/24 08:38 03/16/24 07:00 03/16/24 08:38 03/16/24 07:00
Physical Exam
Constitutional: No Acute Distress and Comfortable
Pulmonary: Clear
Gastrointestinal: Soft, Non Tender and Non Distended
Musculoskeletal: Other (left knee + warmth/induration; dressing with bloody strikethrough)
Neurological: AO x 3
Lines: PICC (RUE intact)
Objective Data
Lab Data
Lab Results
03/15/24 08:11
03/16/24 03:45
ESR Cancelled 03/14/24 13:17
Estimated Creat Clear 59 ml/min 03/16/24 03:45
Total Bilirubin 0.6 mg/dl (0.2-1.3) 03/11/24 16:50
AST 18 U/L (17-59) 03/11/24 16:50
ALT 22 U/L (0-50) 03/11/24 16:50
Alkaline Phosphatase 74 U/L (38-126) 03/11/24 16:50
C-Reactive Protein 44.60 mg/L (0.0-10.00) H 03/14/24 14:10
Most recent labs reviewed.
Micro Results:
03/12/24 14:29 Body Fluid Culture - Preliminary
Knee - Left Gram Stain - Preliminary
03/14/24 16:39 Tissue Culture - Preliminary
Tissue No Growth After 18-24 Hours
Gram Stain - Preliminary
03/14/24 16:39 Anaerobic Culture - Preliminary
Tissue Culture pending. Anaerobic cultures are examined after 3
days incubation. Additional information to follow.
03/14/24 16:39 Wound Culture - Preliminary
Joint No growth
Gram Stain - Preliminary
03/14/24 16:39 Anaerobic Culture - Preliminary
Joint Fluid Culture pending. Anaerobic cultures are examined after 3
days incubation. Additional information to follow.
03/14/24 16:39 Fungal Culture - Preliminary
Joint Fluid Culture in progress.
Positive cultures are reported as soon as detected.
Final report to follow in four to five weeks.
03/14/24 16:39 Fungal Culture - Preliminary
Tissue Culture in progress.
Positive cultures are reported as soon as detected.
Final report to follow in four to five weeks.
Care Review
Plan reviewed with: Physician (Dr. Dumont)
[2024-03-16] MEDS: NOVOLOG FLEXPEN-LOW RESISTANCE 1 UNITS SC ×2 (12:26→16:46)
[2024-03-16] MEDS: DILAUDID 0.5 MG IV (13:42)
[2024-03-16 14:14] VITALS: BP 108/73; BP 125/83
--- NOTE | 2024-03-16 14:25 | W.PN.HOSP.TC ---
Addendum entered and electronically signed by Elvis Dumont MD 03/17/24 15:10:
Correction I and D was on 03/14 24 , not 03/04/24
Addendum entered and electronically signed by Elvis Dumont MD 03/17/24 15:09:
Correction I and D was on 03/14 24 , not 03/04/24.
Original Note:
Today's Communication/Plan
-
Discharge planning
Assessment / Plan
Assessment / Plan
73-year-old male presented with lightheadedness and syncope. Patient felt lightheaded while on the commode got into the bed and passed out. Mostly bedbound due to left knee pain and poor p.o. intake.
CVS: S1-S2 normal
Chest: CTA B/L
Abdomen: Soft, NT / Bowel sounds present
Extremities: left knee edema , mild warmth, Acquacel in place
# Syncope-likely secondary to poor p.o. intake, dehydration, hypovolemia and deconditioning.
# Worsening left knee pain and edema
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
Reportedly had arthrocentesis 2 times [employer]ERY OPERATOR [employer]UDE [employer] February 04 and 2 weeks prior to arrival. 1 more arthrocentesis done on 03/12/2024 in the hospital
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
Fluid studies from 03/12/2024 showing 54,530 cell count with 95% polymorphonuclear cells.
Fluid culture from 02/25/2024 with Streptococcus species- he had 81,400 white cells at that time 95% polymorphonuclear cells.
Cell count is indicative of infection , cultures are also growing gram-positive cocci
Fluid obtained and blood culture bottle growing gram-positive cocci on 03/12/2024- Strep mitis
No crystals seen
Left knee open I&D 03/04/[address] Ramirez
Ceftriaxone started to be continued till 04/26/24
Picc placed
(Per PT pt has been refusing PT and agreable today)
# TAMARA on CKD stage IIIb
Creatinine 3.6 on admission now down to 1.5
# Leukocytosis-Resolved with hydration
# Hypertension- Restarted chlorthalidone and lisinopril
# Hyperlipidemia-continue statin
# Enlarged prostate-continue finasteride
# Diabetes-diet controlled. Hemoglobin A1c 7.9. Restarted Metformin
# Ex-smoker
# DVT prophylaxis-heparin subcutaneous
# Full code
Discussed with infectious disease
D/W Sister and pt's daughter at bed side
Discussed with nursing
D/W Case management
Encourage out of bed
Anticipated Discharge: Within 24 hours
Subjective/Interval History
-
Date of Service: March 16, 2024
Objective Data
-
Labs:
Laboratory Results
03/16/24
03:45
Sodium 137
Potassium 4.4
Chloride 98
Carbon Dioxide 27
BUN 22 H
Creatinine 1.5 H
Glucose 124 H
Calcium 9.2
Vital Signs:
Vital Signs
Temp Pulse Resp BP Pulse Ox
97.8 F 103 18 129/81 97
03/16/24 07:00 03/16/24 08:38 03/16/24 07:00 03/16/24 08:38 03/16/24 07:00
I&O
03/15/24 03/16/24 03/17/24
06:59 06:59 06:59
Intake Total 900 / 900 480 / 480
Output Total 1825 / 1825 1425 / 1425
Balance -925 / -925 -945 / -945
[2024-03-16 15:00] VITALS: BP 121/84
[2024-03-16 16:37] LABS: Glucose - Point of Care 159 mg/dl (70-99)
[2024-03-16] MEDS: PROSCAR 5 MG PO (21:06)
[2024-03-16 21:11] LABS: Glucose - Point of Care 130 mg/dl (70-99)
[2024-03-16] MEDS: SENOKOT-S 1 TABLET PO (21:11)
[2024-03-16 23:19] VITALS: BP 109/71
[2024-03-17] MEDS: ROXICODONE 5 MG PO ×2 (01:58→09:31)
[2024-03-17 06:59] LABS: Glucose - Point of Care 140 mg/dl (70-99)
[2024-03-17] MEDS: NOVOLOG FLEXPEN-LOW RESISTANCE SC (07:22)
--- NOTE | 2024-03-17 07:28 | W.PN.ORTHO ---
Today's Communication / Plan
-
73-year-old male POD 3 Left knee open I&D 03/14/[address] Ramirez.
- Appreciate the care of all involved, continue treatment.
- Dispo per patient/CM- PICC.
- Following intra-op Cx data (fluid and tissue). Intra-op cultures without growth thus far.
- Latest aspirate (03/12) cx Strep mitis/oralis. 02/24 outpt aspiration cx Strep species. Appreciate ID- Rocephin 2g IV q24H x 6 weeks through 04/26/2024.
- Heparin for now for DVT ppx.
- May be WBAT on walker.
- PT/OT. Encouraged OOB. Ice and Elevation.
- Follow-up with orthopedics as an outpatient in 2 weeks for staple removal.
Assessment
.
Distal Motor Intact: Yes
Dressing:
Clean, dry and intact. Aquacel dressing in place to left knee with scant contained bloody drainage.
Able to demonstrate gentle flexion and extension without significant discomfort.
Calf is soft and nontender to palpation. Able to plantarflex and dorsiflex left ankle. NVI distally.
Assessment:
POD 3 Left Knee Open I&D 03/14/[address] Ramirez.
Plan
.
Surgery / Date: Left knee open I&D Mar 21 ([facility])
DVT Prophylaxis: Other (Heparin )
Activity:
Out of bed. May be WBAT LLE.
PT/OT
Discharge Information:
Appreciate CM.
Subjective
.
.:
Patient resting comfortably in bed. Feels as though he is progressing in the right direction. Denies any new complaints or concerns at this time.
Vital Signs and Labs
.
Vital Signs and Labs:
Lab Results
03/15/24 08:11
03/16/24 03:45
Temp Pulse Resp BP Pulse Ox
97.4 F 97 18 109/71 96
03/16/24 23:19 03/16/24 23:19 03/16/24 23:19 03/16/24 23:19 03/16/24 23:19
[2024-03-17 07:30] VITALS: BP 154/96
[2024-03-17] MEDS: ZESTRIL 5 MG PO (08:44)
[2024-03-17] MEDS: LIPITOR 40 MG PO (08:46)
[2024-03-17] MEDS: PROTONIX 40 MG PO (08:46)
[2024-03-17] MEDS: GLUCOPHAGE 1000 MG PO (08:47)
[2024-03-17] MEDS: HEPARIN 5000 UNITS SC (08:48)
[2024-03-17] MEDS: LIDOCAINE 4% PATCH TOPICAL (09:08)
[2024-03-17] MEDS: STERILE WATER FOR INJECTION 20 ML IV (09:10)
[2024-03-17] MEDS: ROCEPHIN 2000 MG IV (09:10)
[2024-03-17] MEDS: MIRALAX 17 GRAMS PO (09:31)
--- NOTE | 2024-03-17 11:19 | VATNOTE ---
During routine assessment noted that PICC dressing was not covering PICC site. Educated pt on importance of letting us know if the dressing is coming off/if the PICC insertion site is uncovered. Pt stated that he had informed PCN. Old dressing
removed, site cleansed with chlorhexidine, and new sterile dressing with biopatch applied.
[2024-03-17 11:49] LABS: Glucose - Point of Care 179 mg/dl (70-99)
[2024-03-17] MEDS: NOVOLOG FLEXPEN-LOW RESISTANCE 1 UNITS SC (11:59)
[2024-03-17] MEDS: TYLENOL 650 MG PO (12:00)
--- NOTE | 2024-03-17 12:10 | W.PN.ID1 ---
Date of Service
Date of Service: March 17, 2024
Today's Communication
DC home today.
Follow-up with me in 3 to 4 weeks.
Assessment / Plan
# Septic left Knee s/p Incision and drainage with irrigation and debridement of left knee 03/14.
# Persistent large left knee effusion after viscosupplementation injection (02/04)
- s/p large volume arthrocentesis x 4, outpt
- 02/24 synovial fluid 81,400 WBC, 96% PMN, neg crystal. Cx rare Strep species from anaerobic cx.
- 03/12 synovial fluid 54,539 WBC, 95%PMN, neg crystal. Gram stain: GPC, cx: Strep mitis/oralis
- 03/14 OR cultures neg to date.
- Continue ceftriaxone 2g IV q24 x 6 weeks through 04/26/24.
- Follow weekly CRP, cbc, cmp.
-PICC in place
-Dc home today
-Follow up with me in 3 to 4 weeks.
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
Diabetes mellitus
Hypertension
CKD 3
Dyslipidemia
BPH
Left knee osteoarthritis
History of left knee arthroscopic surgery
Right ankle surgery
Chief Complaint
-: Other (knee effusion)
Subjective / Review of Systems
Going home today. Knee stable.
Vital Signs / Physical Exam
Vital Signs
Vital Signs
Temp Pulse Resp BP Pulse Ox
97.7 F 124 22 154/96 96
03/17/24 07:30 03/17/24 08:44 03/17/24 07:30 03/17/24 08:44 03/17/24 07:30
Physical Exam
Constitutional: No Acute Distress and Comfortable
Cardiovascular: Regular Rate and S1/S2
Pulmonary: Clear
Musculoskeletal: Other (left knee + induration/warmth)
Neurological: AO x 3
Objective Data
Lab Data
Lab Results
03/15/24 08:11
03/16/24 03:45
ESR Cancelled 03/14/24 13:17
Estimated Creat Clear 59 ml/min 03/16/24 03:45
Total Bilirubin 0.6 mg/dl (0.2-1.3) 03/11/24 16:50
AST 18 U/L (17-59) 03/11/24 16:50
ALT 22 U/L (0-50) 03/11/24 16:50
Alkaline Phosphatase 74 U/L (38-126) 03/11/24 16:50
C-Reactive Protein 44.60 mg/L (0.0-10.00) H 03/14/24 14:10
Most recent labs reviewed.
Micro Results:
03/14/24 16:39 Anaerobic Culture - Preliminary
Tissue Culture pending. Anaerobic cultures are examined after 3
days incubation. Additional information to follow.
03/14/24 16:39 Tissue Culture - Preliminary
Tissue No Growth After 48 Hours
Gram Stain - Preliminary
03/14/24 16:39 Anaerobic Culture - Preliminary
Joint Fluid Culture pending. Anaerobic cultures are examined after 3
days incubation. Additional information to follow.
03/14/24 16:39 Wound Culture - Preliminary
Joint No growth
Gram Stain - Preliminary
03/12/24 14:29 Body Fluid Culture - Final
Knee - Left Strep mitis/oralis
Gram Stain - Final
03/14/24 16:39 Fungal Culture - Preliminary
Joint Fluid Culture in progress.
Positive cultures are reported as soon as detected.
Final report to follow in four to five weeks.
03/14/24 16:39 Fungal Culture - Preliminary
Tissue Culture in progress.
Positive cultures are reported as soon as detected.
Final report to follow in four to five weeks.
--- NOTE | 2024-03-17 14:05 | W.PN.HOSP.TC ---
Addendum entered and electronically signed by Elvis Dumont MD 03/17/24 15:12:
More than 30 minutes spent in discharge including
Final examination of the patient
Summarizing hospital stay
Instructions for continuing care to all relevant caregivers
Preparation of discharge records, prescriptions, and referral forms
Total time spent (in minutes): 36
Addendum entered and electronically signed by Elvis Dumont MD 03/17/24 15:11:
Dictation- [id number]
Original Note:
Today's Communication/Plan
-
As long as patient has about movement he can be discharged home today.
Assessment / Plan
Assessment / Plan
73-year-old male presented with lightheadedness and syncope. Patient felt lightheaded while on the commode got into the bed and passed out. Mostly bedbound due to left knee pain and poor p.o. intake.
CVS: S1-S2 normal
Chest: CTA B/L
Abdomen: Soft, NT / Bowel sounds present
Extremities: left knee edema , mild warmth, Acquacel in place
# Syncope-likely secondary to poor p.o. intake, dehydration, hypovolemia and deconditioning.
# Worsening left knee pain and edema
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 1 more arthrocentesis done on 03/12/2024 in the hospital
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
Fluid studies from 03/12/2024 showing 54,530 cell count with 95% polymorphonuclear cells.
Fluid culture from 02/25/2024 with Streptococcus species- he had 81,400 white cells at that time 95% polymorphonuclear cells.
Cell count is indicative of infection , cultures are also growing gram-positive cocci
Fluid obtained and blood culture bottle growing gram-positive cocci on 03/12/2024- Strep mitis
No crystals seen
Left knee open I&D 03/04/[address] Ramirez
Ceftriaxone started to be continued till 04/26/24
Picc placed
Home infusion arranged
# TAMARA on CKD stage IIIb
Creatinine 3.6 on admission now down to 1.5
# Leukocytosis-Resolved with hydration
# Hypertension- Restarted chlorthalidone and lisinopril
# Hyperlipidemia-continue statin
# Enlarged prostate-continue finasteride
# Diabetes-diet controlled. Hemoglobin A1c 7.9. Restarted Metformin
# Constipation-mag citrate ordered
# Ex-smoker
# DVT prophylaxis-heparin subcutaneous
# Full code
Discussed with infectious disease
Discussed with nursing
D/W Case management
PT OT eval noted. Pt wants to go home.
Anticipated Discharge: Today
Subjective/Interval History
-
Date of Service: March 17, 2024
Objective Data
-
Vital Signs:
Vital Signs
Temp Pulse Resp BP Pulse Ox
97.7 F 124 22 154/96 96
03/17/24 07:30 03/17/24 08:44 03/17/24 07:30 03/17/24 08:44 03/17/24 07:30
I&O
03/16/24 03/17/24 03/18/24
06:59 06:59 06:59
Intake Total 480 / 480 720 / 720
Output Total 1425 / 1425 950 / 950
Balance -945 / -945 -230 / -230
[2024-03-17] MEDS: ROXICODONE 10 MG PO (14:10)
--- NOTE | 2024-03-17 14:42 | CM ---
Pt seen bedside w/ family. Pt will d/c today
Per PT/OT, pt has no rehab needs.
Pt is current w/ [facility] and will resume services for home PT. Liaison made aware of d/c today
Spoke w/ Katarzyna/[facility] who stated she did some teaching w/ pt yesterday for home IV abx
CM reiterated to pt that nursing is covered to administer abx daily
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 CM provided CG list
Per hospitalist, pt can d/c today after BM
IMM reviewed and pt given copy yesterday
[facility]

[facility]

Plan: Home w/ [facility] and [facility]
[2024-03-17 15:00] VITALS: BP 125/71
--- NOTE | 2024-03-17 15:11 | W.DS.TRANS ---
DC Summary - [employer]
-
Discharge Instructions:
Discharge Diagnosis/Procedures Septic arthritis left knee
Diabetes
Hypertension
Chronic kidney disease
Hyperlipidemia
Enlarged prostate
Arthritis
Diet Diabetic, Carb Controlled,2 Gram Sodium
Activity As tolerated,With assistance
Driving Restrictions No driving
Blood Work CBC< BMP 1 week
Other Services PT,OT,VN
Instructions:
Stand-Alone Forms:
Changes to Home Medications: Yes
Discharge Medications:
DC Medications w/original date entered in [employer]
acetaminophen 325 mg tablet (Tylenol) 650 mg PO Q4HPRN PRN mild pain 03/11/24
atorvastatin 40 mg tablet 40 mg PO DAILY High cholesterol #0 tabs 03/17/24
ceftriaxone 2 gram solution for injection 2,000 mg IV Q24H Infection #0 ea 03/17/24
chlorthalidone 25 mg tablet 25 mg PO Q48H Blood pressure #0 tabs 03/17/24
finasteride 5 mg tablet 5 mg PO HS Urinary issue #0 tabs 03/17/24
lidocaine 4 % topical patch 1 patch topical DAILY Pain #0 ea 03/17/24
lisinopril 10 mg tablet 5 mg (1/2 x 10 mg) PO DAILY Blood pressure #0 tabs 03/17/24
metformin 1,000 mg tablet 1,000 mg PO BID Diabetes #0 tabs 03/17/24
oxycodone 5 mg tablet 5 mg PO Q6HPRN PRN moderate pain #20 tabs 03/17/24
polyethylene glycol 3350 17 gram oral powder packet (Miralax) 17 g PO DAILY Constipation #30 ea 03/17/24
sennosides 8.6 mg capsule (senna) 8.6 mg PO HS Constipation #30 caps 03/17/24
Home Medication Changes
new
oxycodone 5 mg tablet 5 mg PO Q6HPRN PRN moderate pain #20 tabs 03/17/24
polyethylene glycol 3350 17 gram oral powder packet (Miralax) 17 g PO DAILY Constipation #30 ea 03/17/24
sennosides 8.6 mg capsule (senna) 8.6 mg PO HS Constipation #30 caps 03/17/24
ceftriaxone 2 gram solution for injection 2,000 mg IV Q24H Infection #0 ea 03/17/24
Pending Results: Yes
Additional Pending Results:
final fluid CX
[2024-03-17] MEDS: Hygroton 25 MG PO (15:32)
== END 2024-03-17 16:51 | disposition home health service (06) | DRG 486 ==
LOC: 4 WEST ACU 19:09
PROVIDERS: Physician Assistant Medical; Radiology Diagnostic Radiology; Registered Nurse; ADMITTING PHYSICIAN Hospitalist; ATTENDING PHYSICIAN Hospitalist; CONSULT PHYSICIAN Internal Medicine Infectious Disease; CONSULT PHYSICIAN Orthopaedic Surgery; EMERGENCY PHYSICIAN Emergency Medicine; FAMILY PHYSICIAN Family Medicine
PROC: 0S9D3ZX Drainage of Left Knee Joint, Percutaneous Approach, Diagnostic (ICD-10-PCS; 2024-03-12)
PROC: 0MDP0ZZ Extraction of Left Knee Bursa and Ligament, Open Approach (ICD-10-PCS; 2024-03-14)
PROC: 0S9D0ZX Drainage of Left Knee Joint, Open Approach, Diagnostic (ICD-10-PCS; 2024-03-14)
PROC: 0SBD0ZZ Excision of Left Knee Joint, Open Approach (ICD-10-PCS; 2024-03-14)
PROC: 0LBR0ZZ Excision of Left Knee Tendon, Open Approach (ICD-10-PCS; 2024-03-14)
PROC: 02HV33Z Insertion of Infusion Device into Superior Vena Cava, Percutaneous Approach (ICD-10-PCS; 2024-03-15)
DX: M00.262 Other streptococcal arthritis, left knee (principal); N17.9 Acute kidney failure, unspecified; E86.0 Dehydration; R55 Syncope and collapse; M17.12 Unilateral primary osteoarthritis, left knee; E11.22 Type 2 diabetes mellitus with diabetic chronic kidney disease; N18.32 Chronic kidney disease, stage 3b; E86.1 Hypovolemia; I95.9 Hypotension, unspecified; B95.4 Other streptococcus as the cause of diseases classified elsewhere; K59.00 Constipation, unspecified; E78.5 Hyperlipidemia, unspecified; M25.462 Effusion, left knee; I12.9 Hypertensive chronic kidney disease with stage 1 through stage 4 chronic kidney disease, or unspecified chronic kidney disease; N40.0 Benign prostatic hyperplasia without lower urinary tract symptoms; Z74.01 Bed confinement status; Z87.891 Personal history of nicotine dependence; Z79.84 Long term (current) use of oral hypoglycemic drugs
CPT/HCPCS: 88305; 71045; 80048; 80053; 81003; 82962; 83036; 85025; 85027; 85652; 86140; 87015; 87070; 87075; 87077; 87102; 87176; 87186; 87205; 89051; 89060; 93005; 93971; 96361; 96374; 97116; 97163; 97166; 97530; 97535; 99285

== ENCOUNTER → 2024-04-30 12:18 | Outpatient (REF) | payer MEDICARE, SELFPAY | LOC: RAD 12:18 | PROVIDERS: ATTENDING PHYSICIAN Internal Medicine Infectious Disease; FAMILY PHYSICIAN Family Medicine | DX: R60.0 Localized edema (principal) | CPT/HCPCS: 93971 ==

== ENCOUNTER → 2024-07-19 15:07 | Outpatient (REF) | payer MEDICARE, SELFPAY | LOC: RAD 15:07 | PROVIDERS: ATTENDING PHYSICIAN Specialist; FAMILY PHYSICIAN Family Medicine | DX: I10 Essential (primary) hypertension (principal); N28.9 Disorder of kidney and ureter, unspecified; E11.9 Type 2 diabetes mellitus without complications | CPT/HCPCS: 76775 ==

== ENCOUNTER → 2024-08-05 10:29 | Outpatient (REF) | payer MEDICARE, SELFPAY ==
[2024-08-05 12:01] LABS: Glycohemoglobin (HgbA1c) 6.5 % (4.0-5.6)
[2024-08-05 12:09] LABS: Microalbumin, Random Urine 0.6 mg/dl (0.6-1.7); Microalbumin/creatinine Ratio 5.5 mg/g
[2024-08-05 12:14] LABS: ALT (SGPT) 20 U/L (0-50); AST (SGOT) 19 U/L (17-59); Albumin 4.4 g/dl (3.5-5.0); Alkaline Phosphatase 69 U/L (38-126); Blood Urea Nitrogen 22 mg/dl (9-20); Calcium 9.9 mg/dl (8.4-10.2); Carbon Dioxide 27 mmol/L (22-30); Chloride 102 mmol/L (98-107); Glucose 106 mg/dl (70-99); HDL Cholesterol 55 mg/dl; LDL Cholesterol, Calculated 34 mg/dl; Potassium 4.2 mmol/L (3.5-5.1); Sodium 140 mmol/L (135-145); Total Bilirubin 0.6 mg/dl (0.2-1.3); Total Cholesterol 114 mg/dl (50-199); Total Protein 7.2 g/dl (6.3-8.2); Triglyceride 129 mg/dl (10-149); Very Low Density Lipoprotein 25 mg/dl (0-30)
[2024-08-07 10:26] LABS: Intact PTH 38.2 pg/ml (13.6-85.8)
== END ==
LOC: REG 10:29
PROVIDERS: ATTENDING PHYSICIAN Specialist; FAMILY PHYSICIAN Family Medicine; REFERRING PHYSICIAN Specialist
DX: R97.20 Elevated prostate specific antigen [PSA] (principal); E78.2 Mixed hyperlipidemia; E11.69 Type 2 diabetes mellitus with other specified complication; N18.31 Chronic kidney disease, stage 3a; I10 Essential (primary) hypertension; E11.9 Type 2 diabetes mellitus without complications
CPT/HCPCS: 36415; 80053; 80061; 82043; 82570; 83036; 83970; 84153; 84443

== ENCOUNTER → 2025-01-21 11:04 | Outpatient (REF) | payer MEDICARE, SELFPAY ==
[2025-01-21 12:09] LABS: ALT (SGPT) 20 U/L (0-50); AST (SGOT) 18 U/L (17-59); Albumin 4.6 g/dl (3.5-5.0); Alkaline Phosphatase 66 U/L (38-126); Total Protein 7.4 g/dl (6.3-8.2)
== END ==
LOC: REG 11:04
PROVIDERS: ATTENDING PHYSICIAN Podiatrist; FAMILY PHYSICIAN Family Medicine
DX: B35.1 Tinea unguium (principal)
CPT/HCPCS: 36415; 80076